=== PATIENT | female | born 1960 | race African-American/Black ===

== ENCOUNTER 2022-12-29 08:14 | Emergency (ER) | payer MEDICARE, MEDICAID ==
[2022-12-29 09:13] LABS: Bilirubin Negative (Negative); Blood, Urine Small (Negative); Glucose, Urine (Dipstick) Negative (Negative); Ketone, Urine Negative (Negative); Leukocyte Trace (Negative); Nitrite Negative (Negative); Protein, Urine (Dipstick) Negative (Neg-Trace); Specific Gravity, Urine 1.025 (1.005-1.030); Urobilinogen 0.2 mg/dL (Less than 2); pH, Urine 6.5 (5.0-9.0)
[2022-12-29 09:29] LABS: Clarity Hazy (Clear)
[2022-12-29 09:30] LABS: Bacteria/HPF 3+ HPF (None Seen); Transitional Epithelial 0-3 HPF (None Seen); Trichomonas/HPF Rare HPF (None Seen); Yeast-Budding Rare HPF (None Seen)
[2022-12-31 11:28] LABS: Chlam.trachomatis by PCR,Urine Not Detected (NotDetected); GC N.gonorrhoeae PCR,UrineVOID Not Detected (NotDetected)
== END 2022-12-29 09:48 | disposition home or self-care (01) ==
LOC: NAV ERS 08:14
DX: N39.0 Urinary tract infection, site not specified (principal); A59.9 Trichomoniasis, unspecified
CPT/HCPCS: 81003; 81015; 87491; 87591; 99283